=== PATIENT | male | born 1990 | race Two or more races ===

== ENCOUNTER 2018-01-14 14:02 | Emergency (ER) | payer SELFPAY ==
[2018-01-14] MEDS ORDERED: DEXAMETHASONE SOD PHOS INJ 10 MG/1 ML VIAL IM ONE (16:26)
[2018-01-14] MEDS ORDERED: KETOROLAC TROMETHAMINE INJ/PF 30 MG/1 ML SDV IM ONE (16:26)
--- NOTE | 2018-01-14 16:29 | ER Document Report ---
HPI - HPI Pain Level: 5 Notes: Patient is a 27-year-old male with a history of chronic back pain and previous chronic narcotic use who presents to the ED complaining of acute on chronic back pain 1 week. Patient states that he is sleeping on an air mattress as he moved to the area 2 months ago and that has been irritating his back. Patient states that he has bilateral back pain from his shoulders down to his lower back. Patient states that the pain does not radiate into his lower extremities. Patient is still able to ambulate. Patient states that this is the same pain that he has had flareups of in the past. In the past, patient states that he has had injections to his lower back and has been through orthopedics and pain management. He has not had any recent procedures or injections to his back. No significant past medical history otherwise. He is eating and drinking without difficulties. He is urinating normally and having normal bowel moods. Denies IV drug use. Denies any headache, fever, URI, sore throat, chest pain, palpitations, syncope, cough, shortness of breath, wheeze, dyspnea, abdominal pain, nausea/vomiting/diarrhea, urinary retention, dysuria, hematuria, loss of control of bowel or bladder, numbness/tingling, saddle anesthesia, muscle paralysis/weakness, or rash. - ROS Systems Reviewed and Negative: Yes All other systems reviewed and negative Past Medical History - Social History Smoking Status: Unknown if Ever Smoked Family History: Reviewed & Not Pertinent Vertical Provider Document - CONSTITUTIONAL Agree With Documented VS: Yes Notes: PHYSICAL EXAMINATION: GENERAL: Well-appearing, well-nourished and in no acute distress. LUNGS: Breath sounds clear to auscultation bilaterally and equal. No wheezes rales or rhonchi. HEART: Regular rate and rhythm without murmurs, rubs, gallops. ABDOMEN: Soft, nontender, nondistended abdomen. No guarding, no rebound. No masses appreciated. Normal bowel sounds present. No CVA tenderness bilaterally. No pulsatile mass Musculoskeletal: LE's b/l: FROM to passive/active. Strength 5+/5. No deficits noted. No bony tenderness of extremities. Back: FROM to passive/active. Strength 5+/5. No vertebral point tenderness, stepoffs, or deformities. No other bony tenderness, erythema, swelling, or ecchymosis. SLR negative b/l. + mild tenderness to the T/L-paraspinal mm b/l. Mild spasming and trigger points in the muscle noted. No SI jt tenderness. No foot drop Extremities: No cyanosis, clubbing, or edema b/l. Peripheral pulses 2+. Capillary refill less than 2 seconds. NEUROLOGICAL: Normal speech, ataxic gait. Normal sensory, motor exams. Reflexes 2+ b/l. PSYCH: Normal mood, normal affect. SKIN: Warm, Dry, normal turgor, no rashes or lesions noted. - INFECTION CONTROL TRAVEL OUTSIDE OF THE [place] IN LAST 30 DAYS: No Course - Re-evaluation Re-evalutation: 01/14/18 16:39 Patient is an afebrile, well-hydrated, 27-year-old male who presents to the ED with acute on chronic thoracic and lumbar back pain. Vitals are acceptable. PE is otherwise unremarkable. Patient has no significant red flag symptoms. He has no tachycardia, tachypnea, or hypoxia. Patient is ambulatory. Decadron and Toradol given IM today. I do not feel that other labs or imaging are warranted at this time based on H&P. Patient states that this is unchanged from previous flareups and is in the same places. Low suspicion for any meningitis, fracture, expanding/ruptured AAA, cauda equina syndrome, epidural mass lesion/abscess, herniated disc causing severe spinal stenosis, or other systemic infection at this time. Patient is aware that his condition can change from initial presentation and that he needs monitor symptoms closely for any acute changes. I will send him home with a prescription for baclofen. Conservative measures otherwise for symptoms. Recheck with your PCM in 3-5 days. Consider consult orthopedic/physical therapy. Return to the ED with any worsening/concerning symptoms otherwise as reviewed discharge. Patient is in agreement. - Vital Signs Vital signs: Temp Pulse Resp BP Pulse Ox 98.7 F 100 20 149/87 H 99 01/14/18 14:35 01/14/18 14:35 01/14/18 14:35 01/14/18 14:35 01/14/18 14:35 Discharge - Discharge Clinical Impression: Low back pain Qualifiers: Chronicity: chronic Back pain laterality: bilateral Sciatica presence: without sciatica Qualified Code(s): M54.5 - Low back pain Condition: Stable Disposition: HOME, SELF-CARE Instructions: Antinausea Medication ([facility]), Low Back Pain ([facility]), Stretching Exercises for the Back ([facility]) Additional Instructions: Rest, Ice, Compression, Elevation Tylenol/ibuprofen as needed Light stretches daily Strength exercises as able Moist heat and massage may help F/u with your PCP in 3-5 days for a recheck Consider consult(s) with Orthopedics/physical therapy for ongoing/worsening symptoms Return to the ED with any worsening symptoms and/or development of fever, chest pain, palpitations, syncope, shortness of breath, trouble breathing, abdominal pain, n/v/d, blood in stool/urine, loss of control of bowel/bladder, urinary retention, muscle weakness/paralysis, saddle anesthesia, numbness/tingling, or other worsening symptoms that are concerning to you. Prescriptions: Baclofen [Baclofen 10 mg Tablet] 5 - 10 mg PO BID PRN #10 tablet PRN Reason: Forms: Elevated Blood Pressure Referrals: [facility] [Provider Group] - Follow up as needed
[2018-01-14 17:11] VITALS: BP 127/81
== END 2018-01-14 17:07 | disposition home or self-care (01) ==
LOC: ER 14:02
DX: M54.5 Low back pain (principal)
CPT/HCPCS: 99283; 96372; J1885

== ENCOUNTER 2018-02-05 19:28 | Observation (INO) | payer SELFPAY ==
[2018-02-05] MEDS ORDERED: RINGERS SOLUTION,LACTATED 1,000 ML IV ONE (20:23)
[2018-02-05] MEDS ORDERED: KETOROLAC TROMETHAMINE INJ/PF 30 MG/1 ML SDV IV ONE (20:44)
[2018-02-05] MEDS ORDERED: ONDANSETRON HCL INJ/PF 4 MG/2 ML SDV IV ONE (20:44)
[2018-02-05] MEDS ORDERED: MORPHINE SULFATE 10 MG/ML INJ IV PRN (20:44)
[2018-02-05 20:50] LABS: ABSOLUTE BASOPHILS # (AUTO) 0.1 10^3/uL (0.0-0.2); ABSOLUTE EOSINOPHILS # (AUTO) 0.9 10^3/uL (0.0-0.6); ABSOLUTE LYMPHOCYTES (AUTO) 3.1 10^3/uL (0.5-4.7); ABSOLUTE MONOCYTES (AUTO) 0.8 10^3/uL (0.1-1.4); ABSOLUTE NEUT (AUTO) 6.7 10^3/uL (1.7-8.2); BASOPHILS % (AUTO) 0.6 % (0-2); EOSINOPHILS % (AUTO) 8.2 % (0-6); HEMATOCRIT 47.3 % (37.9-51.0); HEMOGLOBIN 16.1 g/dL (13.5-17.0); LYMPHOCYTES % (AUTO) 26.5 % (13-45); MEAN CORPUSCULAR HEMOGLOBIN 32.5 pg (27.0-33.4); MEAN CORPUSCULAR VOLUME 96 fl (80-97); MONOCYTES % (AUTO) 6.9 % (3-13); PLATELET COUNT 203 10^3/uL (150-450); RED BLOOD COUNT 4.94 10^6/uL (4.35-5.55); RED CELL DISTRIBUTION WIDTH 13.7 % (11.5-14.0); SEGMENTED NEUTROPHILS % (AUTO) 57.8 % (42-78); TOTAL CELLS COUNTED % (AUTO) 100 %; WHITE BLOOD COUNT 11.6 10^3/uL (4.0-10.5)
--- NOTE | 2018-02-05 21:02 | ER Document Report ---
ED General - General Chief Complaint: Abdominal Pain Stated Complaint: ABDOMINAL PAIN,DIARRHEA Time Seen by Provider: 02/05/18 20:23 Notes: Patient is a 27-year-old male without chronic medical problems other than asthma who presents with 3 days of progressively worsening right lower quadrant abdominal pain with associated nausea. Patient reports the pain started as a dull ache to the periumbilical area and has become increasingly painful now mostly towards the right lower quadrant. He reports he has had a fever at home up to 102F. He states that he has had some loose stools but he attributes this to taking laxatives as he initially felt like his pain was due to constipation. He denies any history of similar symptoms in the past. Touching the area markedly worsens the pain. Nothing improves the pain. He has not seen his primary care doctor regarding today's concerns. TRAVEL OUTSIDE OF THE [place] IN LAST 30 DAYS: No - Related Data Allergies/Adverse Reactions: No Known Allergies Allergy (Verified 02/05/18 19:28) Past Medical History - General Information source: Patient - Social History Smoking Status: Current Every Day Smoker Chew tobacco use (# tins/day): No Frequency of alcohol use: None Drug Abuse: None Lives with: Spouse/Significant other Family History: Reviewed & Not Pertinent Patient has suicidal ideation: No Patient has homicidal ideation: No Renal/ Medical History: Denies: Hx Peritoneal Dialysis Past Surgical History: Reports: Hx Orthopedic Surgery - cyst on shoulder as child Review of Systems - Review of Systems Notes: Constitutional: Negative for fever. HENT: Negative for sore throat. Eyes: Negative for visual changes. Cardiovascular: Negative for chest pain. Respiratory: Negative for shortness of breath. Gastrointestinal: Positive for abdominal pain and nausea. Genitourinary: Negative for dysuria. Musculoskeletal: Negative for back pain. Skin: Negative for rash. Neurological: Negative for headaches, weakness or numbness. 10 point ROS negative except as marked above and in HPI. Physical Exam - Vital signs Vitals: Temp Pulse Resp BP Pulse Ox 99.5 F 108 H 14 145/89 H 99 02/05/18 19:39 02/05/18 19:39 02/05/18 19:39 02/05/18 19:39 02/05/18 19:39 Interpretation: Tachycardic Notes: PHYSICAL EXAMINATION: GENERAL: Appears somewhat uncomfortable but in no acute distress HEAD: Atraumatic, normocephalic. EYES: Pupils equal round and reactive to light, extraocular movements intact, sclera anicteric, conjunctiva are normal. ENT: nares patent, oropharynx clear without exudates. Moderately dry mucous membranes. NECK: Normal range of motion, supple without lymphadenopathy LUNGS: Breath sounds clear to auscultation bilaterally and equal. No wheezes rales or rhonchi. HEART: Regular rate and rhythm without murmurs ABDOMEN: Soft, focal tenderness to the right lower quadrant is exquisite in nature with associated rebound. No guarding. No masses appreciated. EXTREMITIES: Normal range of motion, no pitting or edema. No cyanosis. NEUROLOGICAL: No focal neurological deficits. Moves all extremities spontaneously and on command. PSYCH: Moderately anxious SKIN: Warm, Dry, normal turgor, no rashes or lesions noted. Course - Re-evaluation Re-evalutation: 02/05/18 21:01 Patient presents with 3 days of progressively worsening right lower quadrant abdominal pain with associated nausea. He reports he has had some loose stools but he attributes this to having taken laxatives in an attempt to relieve the pain as he felt he might be constipated. On examination patient's exam is very worrisome for acute appendicitis. He has marketed tenderness in the right lower quadrant with associated rebound ring. He has had a fever at home up to 102.4F. He took antipyretics prior to arrival in the hospital today and so is no longer febrile. Will obtain labs and send the patient for CT the abdomen pelvis to further assess. 02/05/18 22:56 CT of the abdomen pelvis without evidence of acute appendicitis. On reexamination the patient continues to have persistent severe pain to the right lower quadrant rebound. I therefore discussed with the surgeon administrative professional Dr. Gabino Wilson. He has assessed patient in conjunction with me at the bedside. He has agreed to hospitalize the patient for observation given concerns of possible developing appendicitis. - Vital Signs Vital signs: Temp Pulse Resp BP Pulse Ox 99.5 F 108 H 14 145/89 H 99 02/05/18 19:39 02/05/18 19:39 02/05/18 19:39 02/05/18 19:39 02/05/18 19:39 - Laboratory Result Diagrams: 02/05/18 20:31 02/05/18 20:31 Laboratory results interpreted by me: 02/05/18 02/05/18 20:31 20:31 WBC 11.6 H Eosinophils % 8.2 H Absolute Eosinophils 0.9 H Sodium 146.2 H Glucose 119 H ALT 12 L Alkaline Phosphatase 32 L Lipase 388.3 H - Diagnostic Test Radiology reviewed: Image reviewed, Reports reviewed Discharge - Discharge Clinical Impression: Right lower quadrant abdominal pain, Nausea Fever Qualifiers: Fever type: due to other condition Qualified Code(s): R50.81 - Fever presenting with conditions classified elsewhere Condition: Fair Disposition: ADMITTED OBSERVATION Admitting Provider: Surgicalist Unit Admitted: Surgical Floor Referrals: JOSE JOHNSON MD [Primary Care Provider] - Follow up as needed
[2018-02-05 21:31] LABS: ALANINE AMINOTRANSFERASE 12 U/L (21-72); ALBUMIN 4.8 g/dL (3.5-5.0); ALKALINE PHOSPHATASE 32 U/L (38-126); ANION GAP 12 (5-19); ASPARTATE AMINO TRANSFERASE 25 U/L (17-59); BILIRUBIN,DIRECT 0.2 mg/dL (0.0-0.4); BILIRUBIN,TOTAL 0.2 mg/dL (0.2-1.3); BLOOD UREA NITROGEN 11 mg/dL (7-20); CARBON DIOXIDE 28 mmol/L (22-30); CHLORIDE 106 mmol/L (98-107); GLUCOSE 119 mg/dL (75-110); LIPASE 388.3 U/L (23-300); POTASSIUM 3.7 mmol/L (3.6-5.0); SODIUM 146.2 mmol/L (137-145); TOTAL PROTEIN 8.1 g/dL (6.3-8.2)
[2018-02-05] MEDS: FENTANYL CITRATE INJ/PF 100 MCG/2 ML AMPUL IV PRN ×2 (22:01→23:24)
--- NOTE | 2018-02-05 22:16 | RADIOLOGY REPORT (SQ) ---
EXAM DESCRIPTION: CT ABD/PELVIS WITH IV ONLY COMPLETED DATE/TIME: 02/05/2018 9:50 pm REASON FOR STUDY: eval acute appendicitis COMPARISON: None. TECHNIQUE: CT scan of the abdomen and pelvis performed using helical scanning technique with dynamic intravenous contrast injection. No oral contrast. Images reviewed with lung, soft tissue, and bone windows. Reconstructed coronal and sagittal MPR images reviewed. Delayed images for evaluation of the urinary system also acquired. All images stored on PACS. All CT scanners at this facility use dose modulation, iterative reconstruction, and/or weight based d osing when appropriate to reduce radiation dose to as low as reasonably achievable (ALARA). [facility]: Dose Right [facility]: CareDose [facility]: Dose Right [facility]: Teradose 4D [facility]: [employer] CONTRAST TYPE AND DOSE: contrast/concentration: Isovue 370.00 mg/ml; Total Contrast Delivered: 100.0 ml; Total Saline Delivered: 42.1 ml RENAL FUNCTION: None required. The patient is less than 50 years old. RADIATION DOSE: CT Rad equipment meets quality standard of care and radiation dose reduction techniq ues were employed. CTDIvol: 11.9 - 11.9 mGy. DLP: 1240 mGy-cm.. LIMITATIONS: None. FINDINGS: LOWER CHEST: No significant findings. No nodules or infiltrates. LIVER: Normal size. Subtle 5 cm lesion in the left lobe of the liver with decreased attenuation cent rally. Enhances slightly more the liver on initial series and is isodense with liver on delayed seri es. No dilated ducts. SPLEEN: Normal size. No focal lesions. PANCREAS: No masses. No significant calcifications. No adjacent inflammation or peripancreatic fluid collections. Pancreatic duct not dilated. GALLBLADDER: No identified stones by CT criteria. No inflammatory changes to suggest cholecystitis. ADRENAL GLANDS: No significant masses or asymmetry. RIGHT KIDNEY AND URETER: No solid masses. No significant calcifications. No hydronephrosis or hyd roureter. LEFT KIDNEY AND URETER: No solid masses. No significant calcifications. No hydronephrosis or hydr oureter. AORTA AND VESSELS: No aneurysm. No dissection. Renal arteries, SMA, celiac without stenosis. RETROPERITONEUM: No retroperitoneal adenopathy, hemorrhage or masses. BOWEL AND PERITONEAL CAVITY: No masses or inflammatory changes. No free fluid or peritoneal masses. APPENDIX: Normal. PELVIS: No mass. No free fluid. Normal bladder. ABDOMINAL WALL: No masses. No hernias. BONES: No significant or acute findings. OTHER: No other significant finding. IMPRESSION: 1. SUBTLE 5 CM LESION IN THE LEFT LOBE OF THE LIVER. THIS MAY BE AN AREA OF FOCAL NODULAR HYPERPLASI A. RECOMMEND FOLLOW-UP OUTPATIENT MRI OF THE LIVER. 2. NO OTHER SIGNIFICANT OR ACUTE FINDING IN THE ABDOMEN OR PELVIS ON CT SCAN WITH IV CONTRAST. AIDA Sexton APPENDIX. TECHNICAL DOCUMENTATION: JOB ID: [id number] Quality ID # [id number]: Final reports with documentation of one or more dose reduction techniques (e.g., Au tomated exposure control, adjustment of the mA and/or kV according to patient size, use of iterative reconstruction technique) 2010 [employer]- All Rights Reserved Reading location - IP/workstation name: [email or web address]
--- NOTE | 2018-02-05 23:01 | PDOC H&P ---
History of Present Illness Admission Date/PCP: JOSE JOHNSON Patient complains of: Abdominal pain History of Present Illness: KAM GONZALEZ is a 27 year old male Resents to the emergency department by ground rescue complaining of abdominal pain 3 days localized to the right lower quadrant with some anorexia no nausea or vomiting. He was told not to tighten up his abdomen when examined by family members who seem to be familiar with appendicitis. He denies history of trauma , previous episodes, diarrhea constipation or dysuria. He was evaluated in the emergency department by Dr. Angel Mariee, found to have right lower quadrant tenderness, and a mild leukocytosis. A CT scan of the abdomen and pelvis was performed without oral contrast which was interpreted as normal. An incidental left lower lobe liver lesion consistent with fibronodular hyperplasia with identified. Because of persisting abdominal pain and tenderness on exam, surgery was consulted and he was advised admission. Past Medical History Past Medical History: History of anxiety disorder, bipolar disorder; no medications past several years. Past Surgical History Past Surgical History: History of remote blunt trauma; chronic low back pain; history of left shoulder cyst operated on age 7 Past Surgical History: Reports: Orthopedic Surgery - cyst on shoulder as child Social History Smoking Status: Current Every Day Smoker Frequency of Alcohol Use: None Hx Recreational Drug Use: No Hx Prescription Drug Abuse: No Family History Family History: Reviewed & Not Pertinent Parental Family History Reviewed: Yes Children Family History Reviewed: Yes Sibling(s) Family History Reviewed.: Yes Medication/Allergy Home Medications: Baclofen [Baclofen 10 mg Tablet] 5 - 10 mg PO BID PRN #10 tablet 01/14/18 Allergies/Adverse Reactions: No Known Allergies Allergy (Verified 02/05/18 19:28) Review of Systems Eyes: ABSENT: visual disturbances Ears: ABSENT: hearing changes Cardiovascular: ABSENT: chest pain, dyspnea on exertion, edema, orthropnea, palpitations Gastrointestinal: PRESENT: as per HPI Genitourinary: ABSENT: dysuria, hematuria Musculoskeletal: ABSENT: joint swelling Integumentary: ABSENT: rash, wounds Physical Exam Vital Signs: Temp Pulse Resp BP Pulse Ox 99.5 F 108 H 14 145/89 H 99 02/05/18 19:39 02/05/18 19:39 02/05/18 19:39 02/05/18 19:39 02/05/18 19:39 Intake & Output 0502/05/18 02/06/18 06:59 06:59 06:59 Weight 102.9 kg General appearance: PRESENT: other - Very anxious almost shaking with [place] Eye exam: PRESENT: EOMI Mouth exam: PRESENT: dry mucosa Neck exam: PRESENT: full ROM Respiratory exam: PRESENT: clear to auscultation sommer Cardiovascular exam: PRESENT: RRR Pulses: PRESENT: normal carotid pulses, normal radial pulses, normal femoral pulses, normal dorsalis pedis pul GI/Abdominal exam: PRESENT: other - Flat, tender right lower quadrant but no involuntary or voluntary guarding; no peritoneal signs no rigidity. No groin hernias. Rectal exam: PRESENT: deferred Gentrourinary exam: PRESENT: other - Testes descended bilaterally knee. No scrotal tenderness Extremities exam: PRESENT: full ROM Musculoskeletal exam: PRESENT: full ROM Neurological exam: PRESENT: alert, awake, oriented to person, oriented to place , oriented to time, oriented to situation Psychiatric exam: PRESENT: agitated, other - Almost panic stricken Results Laboratory Results: 02/05/18 20:31 02/05/18 20:31 02/05/18 02/05/18 20:31 20:31 WBC 11.6 H RBC 4.94 Hgb 16.1 Hct 47.3 MCV 96 MCH 32.5 MCHC 34.0 RDW 13.7 Plt Count 203 Seg Neutrophils % 57.8 Lymphocytes % 26.5 Monocytes % 6.9 Eosinophils % 8.2 H Basophils % 0.6 Absolute Neutrophils 6.7 Absolute Lymphocytes 3.1 Absolute Monocytes 0.8 Absolute Eosinophils 0.9 H Absolute Basophils 0.1 Sodium 146.2 H Potassium 3.7 Chloride 106 Carbon Dioxide 28 Anion Gap 12 BUN 11 Creatinine 0.84 Est GFR ( Amer) > 60 Est GFR (Non-Af Amer) > 60 Glucose 119 H Calcium 10.0 Total Bilirubin 0.2 AST 25 ALT 12 L Alkaline Phosphatase 32 L Total Protein 8.1 Albumin 4.8 Lipase 388.3 H Impressions: Abdomen/Pelvis CT 02/05/18 20:44 IMPRESSION: 1. SUBTLE 5 CM LESION IN THE LEFT LOBE OF THE LIVER. THIS MAY BE AN AREA OF FOCAL NODULAR HYPERPLASIA. RECOMMEND FOLLOW-UP OUTPATIENT MRI OF THE LIVER. 2. NO OTHER SIGNIFICANT OR ACUTE FINDING IN THE ABDOMEN OR PELVIS ON CT SCAN WITH IV CONTRAST. NORMAL APPENDIX. Assessment & Plan - Diagnosis (1) Abdominal pain Qualifiers: Abdominal location: right lower quadrant Qualified Code(s): R10.31 - Right lower quadrant pain Is this a current diagnosis for this admission?: Yes Plan: Patient has subacute abdominal pain localized to the right lower quadrant, tenderness but no peritoneal signs, mild leukocytosis and normal CT scan of the abdomen and pelvis. The CT scan is without oral contrast so is somewhat limited , but nonetheless no evidence of free air free fluid phlegmon etc. the patient' s pain is out of proportion to physical findings. Furthermore his anxiety , which is quite pronounced despite receiving pain medication, and reassurances by the staff, obscures the clinical picture somewhat. Recommendations: 1. Keep patient n.p.o. on IV fluids, hold pain medicine; patient may require anxiolytics. 2. Explained to patient and significant other that if this is appendicitis, it will declare itself by manifesting more abdominal pain and tenderness. If patient's clinical picture deteriorates, he may require exploratory laparoscopy , necessary surgery. There is no indication for surgery tonight. (2) Smoker Is this a current diagnosis for this admission?: Yes (3) Anxiety disorder Qualifiers: Anxiety disorder type: generalized anxiety disorder Qualified Code(s): F41.1 - Generalized anxiety disorder Is this a current diagnosis for this admission?: Yes (4) Liver mass, left lobe Is this a current diagnosis for this admission?: Yes Plan: Appears benign, but radiologic interpretation limited. Patient may require MRI scanning on an outpatient basis - Time Time Spent: 50 to 70 Minutes Critical Time spent with patient: 15-24 minutes Medications reviewed and adjusted accordingly: Yes Anticipated discharge: Home - Inpatient Certification Based on my medical assessment, after consideration of the patient's comorbidities, presenting symptoms, or acuity I expect that the services needed warrant INPATIENT care.: Yes I certify that my determination is in accordance with my understanding of Medicare's requirements for reasonable and necessary INPATIENT services [42 CFR 412.3e].: Yes Medical Necessity: Need For IV Fluids
[2018-02-05 23:29] LABS: APPEARANCE,URINE CLEAR; BILIRUBIN,URINE NEGATIVE (NEGATIVE); COLOR,URINE YELLOW; GLUCOSE, URINE NEGATIVE (NEGATIVE); KETONES,URINE NEGATIVE (NEGATIVE); LEUKOCYTE ESTERASE,URINE NEGATIVE (NEGATIVE); NITRITE,URINE NEGATIVE (NEGATIVE); PROTEIN,URINE NEGATIVE (NEGATIVE); URINE SPECIFIC GRAVITY 1.026; UROBILINOGEN,URINE NEGATIVE mg/dL (<2.0)
[2018-02-05] MEDS: RINGERS SOLUTION,LACTATED 1,000 ML IV PRN (23:29)
[2018-02-06] MEDS: FENTANYL CITRATE INJ/PF 100 MCG/2 ML AMPUL IV PRN (01:58)
[2018-02-06] MEDS: RINGERS SOLUTION,LACTATED 1,000 ML IV PRN ×2 (04:37→13:33)
[2018-02-06] MEDS ORDERED: MORPHINE SULFATE 10 MG/ML INJ IV PRN (08:28)
[2018-02-06] MEDS ORDERED: MORPHINE SULFATE 10 MG/ML INJ ONE (08:38)
[2018-02-06 10:08] LABS: ABSOLUTE EOSINOPHILS # (AUTO) 0.7 10^3/uL (0.0-0.6); ABSOLUTE LYMPHOCYTES (AUTO) 1.9 10^3/uL (0.5-4.7); ABSOLUTE MONOCYTES (AUTO) 0.6 10^3/uL (0.1-1.4); ABSOLUTE NEUT (AUTO) 5.8 10^3/uL (1.7-8.2); BASOPHILS % (AUTO) 0.4 % (0-2); EOSINOPHILS % (AUTO) 8.2 % (0-6); HEMATOCRIT 41.2 % (37.9-51.0); HEMOGLOBIN 14.3 g/dL (13.5-17.0); LYMPHOCYTES % (AUTO) 21.3 % (13-45); MEAN CORPUSCULAR HEMOGLOBIN 33.1 pg (27.0-33.4); MEAN CORPUSCULAR HGB CONC 34.7 g/dL (32.0-36.0); MEAN CORPUSCULAR VOLUME 95 fl (80-97); PLATELET COUNT 170 10^3/uL (150-450); RED BLOOD COUNT 4.32 10^6/uL (4.35-5.55); RED CELL DISTRIBUTION WIDTH 13.6 % (11.5-14.0); SEGMENTED NEUTROPHILS % (AUTO) 63.1 % (42-78); TOTAL CELLS COUNTED % (AUTO) 100 %; WHITE BLOOD COUNT 9.1 10^3/uL (4.0-10.5)
[2018-02-06 15:44] VITALS: BP 129/78
--- NOTE | 2018-02-06 15:53 | PDOC DISCHARGE SUMMARY ---
General - Admit/Disc Date/PCP Admission Date/Primary Care Provider: 02/05/18 23:33 JOSE JOHNSON Discharge Date: 02/06/18 - Discharge Diagnosis (1) Abdominal pain Is this a current diagnosis for this admission?: Yes - Additional Information Resuscitation Status: Full Code Discharge Diet: As Tolerated Discharge Activity: Activity As Tolerated Home Medications: Albuterol Sulfate [Proair HFA Inhalation Aerosol 8.5 gm MDI] 2 puff IH Q6HP PRN 02/06/18 History of Present Illness History of Present Illness: KAM GONZALEZ is a 27 year old male with a 3 day h/o RLQ pain. He does report fevers at home, nasusea, and vomiting. He denies melena, hematochezia. He was evaluated in the ED and a CT scan failed to show any sign of appendicitis. He was admitted for observation for possible appendicitis. Hospital Course Hospital Course: He was admitted to the hospital. He did not have any fevers overnight. His pain improved. His repeat CBC was essentially normal. He began tolerating a diet and ambulating. By 02-06-18 it was felt that he had reached maximal hospital benefit and was fit for discharge. Physical Exam Vital Signs: Temp Pulse Resp BP Pulse Ox 98.5 F 83 20 125/78 98 02/06/18 15:16 02/06/18 15:16 02/06/18 15:16 02/06/18 15:16 02/06/18 15:16 Intake & Output 02/05/18 02/06/18 02/07/18 06:59 06:59 06:59 Output Total 100 Balance -100 Weight 103.1 kg Results Laboratory Results: 02/06/18 09:45 02/06/18 09:45 WBC 9.1 RBC 4.32 L Hgb 14.3 Hct 41.2 MCV 95 MCH 33.1 MCHC 34.7 RDW 13.6 Plt Count 170 Seg Neutrophils % 63.1 Lymphocytes % 21.3 Monocytes % 7.0 Eosinophils % 8.2 H Basophils % 0.4 Absolute Neutrophils 5.8 Absolute Lymphocytes 1.9 Absolute Monocytes 0.6 Absolute Eosinophils 0.7 H Absolute Basophils 0.0 Impressions: Abdomen/Pelvis CT 02/05/18 20:44 IMPRESSION: 1. SUBTLE 5 CM LESION IN THE LEFT LOBE OF THE LIVER. THIS MAY BE AN AREA OF FOCAL NODULAR HYPERPLASIA. RECOMMEND FOLLOW-UP OUTPATIENT MRI OF THE LIVER. 2. NO OTHER SIGNIFICANT OR ACUTE FINDING IN THE ABDOMEN OR PELVIS ON CT SCAN WITH IV CONTRAST. NORMAL APPENDIX. Qualifiers - * PATIENT BEING DISCHARGED WITH ANY OF THE FOLLOWING DIAGNOSIS: No Plan Discharge Plan: D/c: home. Diet: as tolerated. Activity: as tolerated. F/u in 2 weeks. Time Spent: Less than 30 Minutes
== END 2018-02-06 17:10 | disposition home or self-care (01) ==
LOC: ER 19:28 → EH 23:33 → 2N 02-06 02:22
PROVIDERS: ATTEND Surgery
DX: R10.31 Right lower quadrant pain (principal); R63.0 Anorexia; Z68.28 Body mass index [BMI] 28.0-28.9, adult; R50.9 Fever, unspecified; R11.2 Nausea with vomiting, unspecified; D72.829 Elevated white blood cell count, unspecified; K76.89 Other specified diseases of liver; F17.200 Nicotine dependence, unspecified, uncomplicated; F41.1 Generalized anxiety disorder; R00.0 Tachycardia, unspecified
CPT/HCPCS: 96376; 99285; 96361; 96374; 96375; 36415 ×2; 83690; 85025 ×2; 80053; 81001; 74177; G0378 ×3; J3010 ×2; J1885; J2270; J2405; J7120 ×2

== ENCOUNTER 2018-03-08 18:20 | Emergency (ER) | payer SELFPAY ==
[2018-03-08 18:24] VITALS: BP 130/80
--- NOTE | 2018-03-08 19:02 | ER Document Report ---
HPI - HPI Patient complains to provider of: Toothache and thigh abscesses Onset: Last week Onset/Duration: Gradual Pain Level: 5 Context: 27-year-old male complaining of right upper third molar pain and decay and bilateral upper thigh abscesses no fever or chills. No facial swelling. Associated Symptoms: None Exacerbated by: Denies Relieved by: Denies Similar symptoms previously: Yes Recently seen / treated by doctor: No - ROS ROS below otherwise negative: Yes Systems Reviewed and Negative: Yes All other systems reviewed and negative Past Medical History - General Information source: Patient - Social History Smoking Status: Current Every Day Smoker Chew tobacco use (# tins/day): No Frequency of alcohol use: None Drug Abuse: None Lives with: Family Family History: Reviewed & Not Pertinent Patient has suicidal ideation: No Patient has homicidal ideation: No Pulmonary Medical History: Reports: Hx Asthma Renal/ Medical History: Denies: Hx Peritoneal Dialysis Psychiatric Medical History: Reports: Hx Depression Past Surgical History: Reports: Hx Orthopedic Surgery - cyst on shoulder as child Vertical Provider Document - CONSTITUTIONAL Agree With Documented VS: Yes Exam Limitations: No Limitations - INFECTION CONTROL TRAVEL OUTSIDE OF THE [place] IN LAST 30 DAYS: No - HEENT HEENT: Normocephalic Notes: Decay and partial tooth loss upper right third molar with gingival inflammation but no abscess - NECK Neck: Supple. negative: Lymphadenopathy-Left, Lymphadenopathy-Right - RESPIRATORY Respiratory: Breath Sounds Normal, No Respiratory Distress - CARDIOVASCULAR Cardiovascular: Regular Rate, Regular Rhythm - MUSCULOSKELETAL/EXTREMETIES Musculoskeletal/Extremeties: MAEW - NEURO Level of Consciousness: Awake - DERM Integumentary: Rash - 2 follicular lesions right medial upper thigh into left medial upper thigh none of them have to be incised Course - Vital Signs Vital signs: Temp Pulse Resp BP Pulse Ox 99.7 F 110 H 20 130/80 H 99 03/08/18 18:24 03/08/18 18:24 03/08/18 18:24 03/08/18 18:24 03/08/18 18:24 Discharge - Discharge Clinical Impression: Right upper third molar decay, Toothache, Folliculitis Condition: Good Disposition: HOME, SELF-CARE Instructions: Bactroban Ointment ([facility]), Clindamycin ([facility]), Dentist, Folliculitis ([facility]), Toothache ([facility]), Warm Packs ([facility]) Additional Instructions: Warm compress Bactroban ointment to the thigh lesions 3 times a day Antibiotics See the dentist Return to the emergency room if worse Prescriptions: Ibuprofen [Motrin 800 mg Tablet] 800 mg PO Q8HP PRN #30 tablet PRN Reason: Clindamycin HCl [Cleocin 150 mg Capsule] 300 mg PO TID #42 capsule Forms: Return to Work Referrals: JOSE JOHNSON MD [ACTIVE STAFF] - Follow up as needed
[2018-03-08] MEDS ORDERED: ACETAMINOPHEN 325 MG TABLET PO ONE (19:04)
[2018-03-08] MEDS ORDERED: LIDOCAINE 2% VISCOUS SOLN 20 ML UDCUP PO ONE (19:04)
[2018-03-08] MEDS ORDERED: MUPIROCIN 2% OINTMENT 22 GM TP ONE (19:04)
[2018-03-08] MEDS ORDERED: IBUPROFEN 800 MG TABLET PO ONE (19:04)
[2018-03-08] MEDS ORDERED: CLINDAMYCIN HCL 150 MG CAPSULE PO ONE (19:04)
== END 2018-03-08 19:18 | disposition home or self-care (01) ==
LOC: ER 18:20
DX: K02.9 Dental caries, unspecified (principal); K05.10 Chronic gingivitis, plaque induced; K08.89 Other specified disorders of teeth and supporting structures; L73.9 Follicular disorder, unspecified; J45.909 Unspecified asthma, uncomplicated; F17.200 Nicotine dependence, unspecified, uncomplicated
CPT/HCPCS: 99282; J3490 ×2

== ENCOUNTER 2018-03-16 16:44 | Emergency (ER) | payer SELFPAY ==
[2018-03-16 16:53] VITALS: BP 112/70
[2018-03-16] MEDS ORDERED: CEFTRIAXONE INJ 1000 MG VIAL IM ONE (17:38)
[2018-03-16] MEDS ORDERED: LIDOCAINE 1% INJ-PF (10 MG/ML) 30 ML SDV INJ ONE (17:38)
[2018-03-16] MEDS ORDERED: HYDROCODONE/ACETAMINOPHEN 5-325 MG TABLET PO ONE (17:39)
[2018-03-16] MEDS ORDERED: SULFAMETHOXAZOLE/TRIMETHOPRIM 800-160 MG TABLET PO ONE (17:39)
--- NOTE | 2018-03-16 17:46 | ER Document Report ---
HPI - HPI Patient complains to provider of: Facial infection Onset: Other - 3 days Onset/Duration: Persistent Quality of pain: Achy Pain Level: 4 Context: Patient states that he had a pimple that he attempted to squeeze 4 days ago. Since then patient complained of facial tenderness, redness and swelling. Patient reports fever yesterday. No fever today. Patient also complains of dental pain to right upper jaw. Patient was here about a week ago and was given a prescription for clindamycin. Patient states he did not get this prescription filled as he had leftover antibiotics at home that he took instead. Patient states it was the same medication. Associated Symptoms: Fever, Other - Facial infection. denies: Headache Exacerbated by: Denies Relieved by: Denies Similar symptoms previously: Yes Recently seen / treated by doctor: Yes - ROS ROS below otherwise negative: Yes Systems Reviewed and Negative: Yes All other systems reviewed and negative - CONSTITUTIONAL Constitutional: REPORTS: Fever - EENT EENT: DENIES: Sore Throat Notes: Dental pain - NEURO Neurology: DENIES: Headache, Weakness - MUSCULOSKELETAL Musculoskeletal: DENIES: Extremity pain - DERM Skin Color: Erythema Notes: Concern about abscess Past Medical History - General Information source: Patient - Social History Smoking Status: Current Every Day Smoker Smoking Education Provided: Yes Frequency of alcohol use: None Drug Abuse: None Occupation: Foodservice Lives with: Family Family History: Reviewed & Not Pertinent Pulmonary Medical History: Reports: Hx Asthma Renal/ Medical History: Denies: Hx Peritoneal Dialysis Psychiatric Medical History: Reports: Hx Depression Past Surgical History: Reports: Hx Orthopedic Surgery - cyst on shoulder as child Vertical Provider Document - CONSTITUTIONAL Agree With Documented VS: Yes Exam Limitations: No Limitations General Appearance: WD/WN, No Apparent Distress - INFECTION CONTROL TRAVEL OUTSIDE OF THE [place] IN LAST 30 DAYS: No - HEENT HEENT: Atraumatic, Normocephalic Mouth Diagram: 1 - Tenderness, dental decay, no gingival abscess, no trismus Notes: Tender indurated skin lesion to the lateral margin of left nose. - NECK Neck: Normal Inspection, Supple - RESPIRATORY Respiratory: Breath Sounds Normal, No Respiratory Distress - CARDIOVASCULAR Cardiovascular: Regular Rate, Regular Rhythm - BACK Back: Normal Inspection - MUSCULOSKELETAL/EXTREMETIES Musculoskeletal/Extremeties: ANGEL, JIMENA - NEURO Level of Consciousness: Awake, Alert, Appropriate Motor/Sensory: No Motor Deficit - DERM Integumentary: Warm, Dry, Abscess - Concern for abscess to left lateral side of nose, area erythematous, tender and indurated, no fluctuance. Patient with 2, 4 cm resolving erythematous skin lesions to bilateral medial thighs Course - Re-evaluation Re-evalutation: 03/16/18 17:42 Patient reports squeezing on pimple to face and having a large amount of purulent drainage. Area is erythematous, tender and indurated. No fluctuance appreciated. Patient reports not getting his last antibiotic filled and had instead taken leftover antibiotics that he had at home. Will instead place patient on Keflex and Bactrim and give him a loading dose of Rocephin here today. Patient will be encouraged to return for recheck in 2 days or immediately if worse. - Vital Signs Vital signs: Temp Pulse Resp BP Pulse Ox 97.6 F 71 12 112/70 97 03/16/18 16:52 03/16/18 16:52 03/16/18 16:52 03/16/18 16:52 03/16/18 16:52 Discharge - Discharge Clinical Impression: Facial cellulitis, Toothache Condition: Stable Disposition: HOME, SELF-CARE Instructions: Cellulitis ([facility]), Cephalexin ([facility]), Oral Narcotic Medication ([facility] ), Rocephin ([facility]), Toothache ([facility]), Trimethoprim-Sulfa ([facility]) Additional Instructions: Return immediately for any new or worsening symptoms Followup with your primary care provider, call tomorrow to make a followup appointment Do not pick at or squeeze your skin lesion to her face Apply warm compresses to the area Return in 2 days for a recheck of the area. If you are having any worsening of your symptoms return immediately for recheck. Prescriptions: Cephalexin Monohydrate [Keflex 500 mg Capsule] 500 mg PO Q6H 7 Days capsule Hydrocodone/Acetaminophen [Bay 5-325 Tablet] 1 each PO Q4 PRN #10 tablet PRN Reason: Sulfamethoxazole/Trimethoprim [Bactrim Ds Tablet] 1 each PO BID #20 tablet Forms: Smoking Cessation Education, Return to Work Referrals: [facility] [Provider Group] - Follow up as needed [facility] [Provider Group] - Follow up as needed
== END 2018-03-16 18:01 | disposition home or self-care (01) ==
LOC: ER 16:44
DX: L03.211 Cellulitis of face (principal); K08.89 Other specified disorders of teeth and supporting structures; F17.200 Nicotine dependence, unspecified, uncomplicated
CPT/HCPCS: 99283; 96372; J3490; J0696

== ENCOUNTER 2018-03-19 13:29 | Emergency (ER) | payer SELFPAY ==
[2018-03-19] MEDS ORDERED: LIDOCAINE 4%/TETRACAINE 0.5%/EPI 0.18% 5 ML TOPICAL SOLN TOP ONE (15:27)
--- NOTE | 2018-03-19 15:27 | ER Document Report ---
ED Wound - General Chief Complaint: Wound Recheck Stated Complaint: RECHECK ABSCESS/FACIAL Time Seen by Provider: 03/19/18 14:21 Mode of Arrival: Ambulatory Information source: Patient Notes: Patient is a 27-year-old male who presents to the ER today for recheck of the small abscess to the left side of his nose/face. Patient was seen here 2 days ago, started on Bactrim and Keflex and states that he "now feels like I have the flu." Patient admits to fever and chills although he has not checked his temperature. Patient states he is taking his antibiotics as prescribed. Patient admits to worsening pain. Patient requests a work note today. He denies any drainage from the area. TRAVEL OUTSIDE OF THE [place] IN LAST 30 DAYS: No - Related Data Allergies/Adverse Reactions: No Known Allergies Allergy (Verified 03/19/18 13:30) Past Medical History - General Information source: Patient - Social History Smoking Status: Never Smoker Family History: Reviewed & Not Pertinent Pulmonary Medical History: Reports: Hx Asthma Renal/ Medical History: Denies: Hx Peritoneal Dialysis Psychiatric Medical History: Reports: Hx Depression Past Surgical History: Reports: Hx Orthopedic Surgery - cyst on shoulder as child Review of Systems - Review of Systems Constitutional: No symptoms reported EENT: No symptoms reported Cardiovascular: No symptoms reported Respiratory: No symptoms reported Gastrointestinal: No symptoms reported Genitourinary: No symptoms reported Male Genitourinary: No symptoms reported Musculoskeletal: No symptoms reported Skin: See HPI Hematologic/Lymphatic: No symptoms reported Neurological/Psychological: No symptoms reported Physical Exam - Vital signs Vitals: Temp Pulse Resp BP Pulse Ox 97.5 F 91 18 113/75 98 03/19/18 13:50 03/19/18 13:50 03/19/18 13:50 03/19/18 13:50 03/19/18 13:50 - Notes Notes: PHYSICAL EXAMINATION: GENERAL: Mildly ill-appearing, but in no acute distress. HEAD: Atraumatic, normocephalic. EYES: Pupils equal round and reactive to light, extraocular movements intact, sclera anicteric, conjunctiva are normal. ENT: ear canals without erythema or foreign body, TMs pearly mayberry with good bony landmarks, nares patent, oropharynx clear without exudates. Moist mucous membranes. Airway patent NECK: Normal range of motion, supple without lymphadenopathy LUNGS: CTAB and equal. No wheezes rales or rhonchi. HEART: Regular rate and rhythm without murmurs EXTREMITIES: Normal range of motion, no pitting edema. No cyanosis. NEUROLOGICAL: Cranial nerves grossly intact. Normal sensory/motor exams. PSYCH: Normal mood, normal affect. SKIN: Warm, Dry, normal turgor, small, 1 cm abscess to the left maxillary space , side of the nose, tender to palpation, fluctuant, erythematous Course - Re-evaluation Re-evalutation: 03/19/18 18:12 Topical lidocaine was applied, 18-gauge was used to incise abscess, purulence was expelled, patient to continue on his antibiotics, patient wanted pain medication, however I do not believe that this warrants narcotic pain medication. I did prescribe him high-dose anti-inflammatories. Patient wanted a work note that I did provide, he is afebrile here with normal vital signs. - Vital Signs Vital signs: Temp Pulse Resp BP Pulse Ox 97.5 F 91 18 113/75 98 03/19/18 13:50 03/19/18 13:50 03/19/18 13:50 03/19/18 13:50 03/19/18 13:50 Procedures - Incision and Drainage Left Face Time completed: 17:00 Type: Simple I&D procedure: Other - alcohol Incision Method: Incision made with needle Amount/type of drainage: purulence, less than 1cc Discharge - Discharge Clinical Impression: Facial abscess Condition: Stable Disposition: HOME, SELF-CARE Instructions: Abscess ([facility]), Cephalexin ([facility]), Post Incision and Drainage, Trimethoprim-Sulfa ([facility]) Additional Instructions: Return immediately for any new or worsening symptoms. Follow up with primary care provider, call tomorrow to make followup appointment. Prescriptions: Ibuprofen [Motrin 800 mg Tablet] 800 mg PO Q8H PRN #30 tab PRN Reason: Forms: Return to Work
[2018-03-19] MEDS ORDERED: OXYCODONE-ACETAMINOPHEN 5-325 MG TABLET PO ONE (15:28)
[2018-03-19 18:21] VITALS: BP 131/76
== END 2018-03-19 18:21 | disposition home or self-care (01) ==
LOC: ER 13:29
PROC: 0H91XZZ Drainage of Face Skin, External Approach (ICD-10-PCS; principal; 2018-03-19)
DX: L02.01 Cutaneous abscess of face (principal); J45.909 Unspecified asthma, uncomplicated
CPT/HCPCS: 99282; 10060; J3490